=== PATIENT | female | born 1965 | race Caucasian/White ===

== ENCOUNTER 2016-05-01 12:05 | Emergency (ER) | payer MEDICAID ==
[~2016-05-01] VITALS: Ht 157.5 cm; Wt 81.0 kg
[~2016-05-01 12:05] MED LIST: ACET-915; IBUP100T31 PO
[2016-05-01 12:15] VITALS: Ht 157.5 cm; Wt 81.0 kg
[2016-05-01] MEDS ORDERED: KETOROLAC 60 MG INJ IM STA (12:43)
[2016-05-01] MEDS ORDERED: ACETAMINOPHEN 325 MG TAB PO ONE (13:00)
[2016-05-01] MEDS ORDERED: OSELTAMIVIR 75 MG CAP PO ONE (13:00)
--- NOTE | 2016-05-01 13:34 | RADRPT ---
PROCEDURE: XR Chest. CLINICAL INDICATION: Chest pain, fever TECHNIQUE: AP view of the chest was performed. COMPARISON: None FINDINGS: Mild cardiomegaly is present. The lungs are clear. No signs of pleural fluid or pneumothorax are se en. No acute infiltrate or findings of fluid overload. The osseous structures and soft tissues are u nremarkable. IMPRESSION: No evidence for active cardiopulmonary disease. Mild cardiomegaly. RPTAT: QQ .Lalitha Carl MD, MD Date Time Electronically viewed and signed by .Lalitha Carl MD, MD on 05/01/2016 13:34 .F/
[2016-05-01] MEDS ORDERED: OSLT75C PO (13:47)
[2016-05-01] MEDS ORDERED: IBUP-1542 PO (13:47)
[2016-05-01] MEDS ORDERED: PROM5SYR2 PO (13:47)
--- NOTE | 2016-05-01 13:51 | ERD ---
ER Documentation Chief Complaint Date/Time DATE: 05/01/16 TIME: 13:50 Chief Complaint fever, body aches, cough x 1 day HPI This 50-year-old female complains of a 2 day history of body aches, fever and dry cough. She has no urinary complaints, vomiting, abdominal pain, neck stiffness ROS All systems reviewed and are negative except as per history of present illness. Medications Home Meds Active Scripts Promethazine HCl/Codeine (Prometh-Codein 6.25-10 mg/5 ml) 5 Ml Syrup, 5 ML PO QID for 4 Days 4 OZ Prov:JOSHUA FRYE MD 05/01/16 Ibuprofen* (Motrin*) 600 Mg Tab, 600 MG PO Q6, #15 TAB Prov:JOSHUA FRYE MD 05/01/16 Oseltamivir Phosphate* (Tamiflu*) 75 Mg Capsule, 75 MG PO BID for 5 Days, CAP Prov:JOSHUA FRYE MD 05/01/16 Reported Medications Ibuprofen (Ibuprofen) 100 Mg Tablet, 100 MG PO Q6 PT TAKES 500 MG IBUPROFEN NEEDED FOR FEVER 04/29/12 Acetaminophen* (Tylenol*) 325 Mg Tab 04/28/12 Allergies Allergies: Coded Allergies: Penicillins (Verified Allergy, Mild, 04/28/12) PMhx/Soc History of Surgery: Yes (TUBAL LIGATION) Anesthesia Reaction: No Hx Neurological Disorder: No Hx Respiratory Disorders: No Hx Cardiac Disorders: No Hx Psychiatric Problems: No Hx Miscellaneous Medical Probl: No Hx Alcohol Use: No Hx Substance Use: No Hx Tobacco Use: No Physical Exam Vitals Vital Signs Date Time Temp Pulse Resp B/P Pulse Ox O2 Delivery O2 Flow Rate FiO2 05/01/16 12:15 98.3 105 18 135/66 96 Physical Exam Const: [] Alert, uncomfortable due to symptoms but no apparent distress Head: Atraumatic Eyes: Normal Conjunctiva ENT: Normal External Ears, Nose and Mouth. Neck: Full range of motion..~ No meningismus. Resp: Clear to auscultation bilaterally. Dry cough without rales, wheezing or retractions Cardio: Regular rate and rhythm, no murmurs Abd: Soft, non tender, non distended. Normal bowel sounds Skin: No petechiae or rashes Back: No midline or flank tenderness Ext: No cyanosis, or edema Neur: Awake and alert Psych: Normal Mood and Affect Results 24 hrs Laboratory Tests Test 05/01/16 12:19 Bedside Glucose 237mg/dL Current Medications Medications (Trade) Dose Ordered Sig/Sedrick Route PRN Reason Start Time Stop Time Status Last Admin Dose Admin Ketorolac Tromethamine (Toradol) 60 mg ONCE STAT IM 05/01/16 12:43 05/01/16 12:46 DC 05/01/16 12:54 Oseltamivir Phosphate (Tamiflu) 75 mg ONCE ONCE PO 05/01/16 13:00 05/01/16 13:01 DC 05/01/16 13:17 Acetaminophen (Tylenol Tab) 650 mg ONCE ONCE PO 05/01/16 13:00 05/01/16 13:01 DC 05/01/16 12:54 Procedures/MDM Chest X-ray 1V Interpreted by me: Soft Tissue: No acute abnormalities Bones: No acute abnormalities Mediastinum/Cardiac Silhouette/Lungs: [No acute abnormalities]. Impression- normal 1 view chest x-ray Patient was given Toradol 60 mg IM for myalgias, Tylenol and Tamiflu p.o. Patient has signs and symptoms of acute URI and febrile illness and myalgias consistent with likely influenza. There is no evidence of respiratory distress or hypoxemia. She will be treated with ibuprofen and Tamiflu at home. The patient was stable with no new complaints during the ER course. Clinically, there is no current evidence to suggest meningitis, sepsis, acute abdomen, pneumonia, acute coronary syndrome, pulmonary embolism, or any other emergent condition appearing to require further evaluation or hospitalization. The patient should certainly return for any new or worsening symptoms per the aftercare instructions. They should otherwise follow-up with her primary care doctor for reevaluation this week. Departure Diagnosis: Primary Impression: Upper respiratory infection URI type: unspecified URI Qualified Code: J06.9 - Upper respiratory tract infection, unspecified type Condition: Stable Patient Instructions: Influenza (Adult) Additional Instructions: X - RAY X-ray normal hoy. Cheque otro vez con amin doctor primario en el proximo enciso or regresa para mas o nueva simptomas. probablamente un virus que dura 2- 4 enciso. cheque otro adriana el proximo maciel para mas simptomas- vomito, dolor, mariya , problemas con respirando, o con amin doctor primario. JOSHUA FRYE MD May 01, 2016 13:51
== END 2016-05-01 15:30 | disposition home or self-care (01) ==
LOC: FTE 12:05
DX: J06.9 Acute upper respiratory infection, unspecified (principal)
CPT/HCPCS: 71010; 82962; 96372; J1885; Z7502; Z7610

== ENCOUNTER 2017-05-26 01:24 | Inpatient (IN) | END 2017-05-30 16:40 | disposition home or self-care (01) | DRG 872 ==

== ENCOUNTER 2017-07-03 18:33 | Emergency (ER) | END 2017-07-03 23:23 | disposition home or self-care (01) ==